=== PATIENT | male | born 1980 | race Hispanic/Latino ===

== ENCOUNTER 2018-04-14 07:53 | Emergency (ER) | payer SELFPAY ==
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
== END 2018-04-14 08:49 | disposition home or self-care (01) ==
LOC: NAV ERS 07:53
DX: S23.41XA Sprain of ribs, initial encounter (principal); F17.210 Nicotine dependence, cigarettes, uncomplicated; V43.52XA Car driver injured in collision with other type car in traffic accident, initial encounter
CPT/HCPCS: G0390